=== PATIENT | female | born 1945 | race Caucasian/White ===

== ENCOUNTER 2017-06-29 20:57 | Emergency (ER) | payer MEDICARE, OTHER ==
[~2017-06-29] VITALS: Ht 165.1 cm; Wt 68.0 kg
[~2017-06-29 20:57] MED LIST: ALBUAER3 IN; FERR27TA2 PO; LEVO750T64 PO; PANT1INJ3 PO; TERB250T66 PO
[2017-06-29 23:55] VITALS: BP 152/83
[2017-06-30] MEDS ORDERED: HYDROcodone-ACET 5/325MG TAB PO ONE (00:15)
[2017-06-30] MEDS ORDERED: KETOROLAC TROMETH 60MG/2ML VIAL IM ONE (00:15)
== END 2017-06-30 02:12 | disposition home or self-care (01) ==
LOC: ER 20:57
DX: S59.001A Unspecified physeal fracture of lower end of ulna, right arm, initial encounter for closed fracture (principal); V89.2XXA Person injured in unspecified motor-vehicle accident, traffic, initial encounter; F17.210 Nicotine dependence, cigarettes, uncomplicated; Y93.89 Activity, other specified; Y92.89 Other specified places as the place of occurrence of the external cause; Y99.8 Other external cause status
CPT/HCPCS: 29125; 73110; 96372; 99284; J1885

== ENCOUNTER 2022-01-27 23:07 | Inpatient (IN) | payer MEDICARE, MEDICAID ==
[~2022-01-27] VITALS: Ht 167.6 cm; Wt 72.3 kg
[2022-01-27 23:40] LABS: Basophils # (auto) 0.1 10 ^3/uL (0-0.2); Basophils % (auto) 0.4 % (0.0-2.0); Eosinophils # (auto) 0.1 10 ^3/uL (0-0.8); Eosinophils % (auto) 0.9 % (0.0-7.0); Hematocrit 37.4 % (36.0-46.0); Hemoglobin 12.2 g/dL (12.2-16.2); Lymphocytes # (auto) 0.4 10 ^3/uL (0.4-5.4); Lymphocytes % (auto) 3.5 % (10.0-50.0); Mean Corpuscular Hemoglobin 27.6 pg (28.0-32.0); Mean Corpuscular Hgb Conc. 32.7 g/dL (32.0-36.0); Mean Corpuscular Volume 84.6 fL (80.0-100.0); Monocytes # (auto) 0.6 10 ^3/uL (0-1.3); Monocytes % (auto) 5.1 % (0.0-12.0); Neutrophils # (auto) 10.3 10 ^3/uL (1.6-8.6); Neutrophils % (auto) 90.1 % (37.0-80.0); Nucleated Red Blood Cells % 0.1 %; Red Blood Cells 4.42 10^6/uL (4.0-5.20); Red Cell Distribution Width 13.9 % (11.8-14.3); White Blood Cell 11.4 10^3/uL (4.4-10.8)
[2022-01-28] LABS: Albumin 3.1 g/dL (3.4-5.0); BUN/Creatinine Ratio 26.2; Calcium 8.6 mg/dL (8.5-10.1); Potassium 4.3 mmol/L (3.5-5.1)
[2022-01-28 00:05] LABS: Bilirubin, Total 0.3 mg/dL (0.2-1.0)
[2022-01-28] MEDS ORDERED: cefTRIAXone 1GM/50ML D5W 50 ML IV ONE (08:45)
[2022-01-28] MEDS ORDERED: MORPHINE SULFATE 4 MG/ML SYR/VIAL IV ONE (08:45)
[2022-01-28] MEDS ORDERED: SODIUM CHLORIDE 0.9% 1,000 ML IV ONE (08:45)
[2022-01-28] MEDS ORDERED: FUROSEMIDE 20 MG/2 ML VIAL IV ONE (08:45)
[2022-01-28] MEDS ORDERED: ONDANSETRON HCL 4 MG/2 ML VIAL IV ONE (08:45)
[2022-01-28] MEDS ORDERED: DOCUSATE SOD 100 MG CAP PO PRN (09:15)
[2022-01-28] MEDS ORDERED: MORPHINE SULFATE 4 MG/ML SYR/VIAL IV PRN (09:15)
[2022-01-28] MEDS ORDERED: ACETAMINOPHEN 325 MG TAB PO PRN (09:15)
[2022-01-28] MEDS ORDERED: TEMAZEPAM 15 MG CAP PO PRN (09:15)
[2022-01-28] MEDS ORDERED: ONDANSETRON HCL 4 MG/2 ML VIAL IV PRN (09:15)
[2022-01-28] MEDS ORDERED: HYDROcodone-ACET 5/325MG TAB PO PRN (09:15)
[2022-01-28] MEDS ORDERED: DOCU100C10 PO (09:36)
[2022-01-28] MEDS ORDERED: ALBUTEROL SULF 2.5 MG/0.5ML(0.5%) NEB SOLN NEB PRN (09:45)
[2022-01-28] MEDS ORDERED: IPRATROPIUM BROM 0.5 MG/2.5ML INH SOL NEB PRN (09:45)
[2022-01-28 09:49] LABS: Urine Bacteria NONE SEEN /hpf (None Seen); Urine Blood Negative /uL (Negative); Urine WBC <1 /hpf (0 - 5)
[2022-01-28] MEDS: PATIENTS OWN MEDICATION (Ferrous Gluconate (Iron) 65 MG) PO SCH (10:00)
[2022-01-28] MEDS: PANTOPRAZOLE 40 MG/10 ML VIAL INJ IV SCH (10:20)
[2022-01-28] MEDS: ENOXAPARIN SOD 40 MG/0.4 ML SYRINGE SC SCH (10:20)
[2022-01-28] MEDS: NICOTINE 14 MG/24HR TOPICAL PATCH TD SCH (10:21)
[2022-01-28 10:22] VITALS: BP 133/85
[2022-01-28 11:55] LABS: Cholesterol 127 mg/dL (< 200); HDL Cholesterol 58 mg/dL (40-59); LDL Cholesterol 63 mg/dL (< 100); Triglycerides 64 mg/dL (< 150)
[2022-01-28 13:00] VITALS: BP 118/64
[2022-01-28] MEDS: SODIUM CHLOR 0.9% PF (SALINE LOCK) 10ML VIAL/SYR IV SCH ×2 (14:00→21:47)
[2022-01-28] MEDS: methylPREDNISolone SOD SUCC 40 MG/ML VL IV SCH ×2 (14:00→21:48)
[2022-01-28] MEDS: CLINDAMYCIN 600MG IV 50 ML IV SCH ×2 (14:00→21:47)
[2022-01-28 15:35] VITALS: BP 118/64
[2022-01-28 17:00] VITALS: BP 110/49
[2022-01-28 17:18] LABS: Amphetamine Screen, Urine POSITIVE (NEGATIVE); Barbiturate Scree,Urine NEGATIVE (NEGATIVE); Benzodiazephine Screen, Urine NEGATIVE (NEGATIVE); Cannabinoid Screen, Urine NEGATIVE (NEGATIVE); Cocaine Screen, Urine NEGATIVE (NEGATIVE); Opiate Scree,Urine NEGATIVE (NEGATIVE); Phencyclidine Screen, Urine NEGATIVE (NEGATIVE)
[2022-01-28] MEDS: FUROSEMIDE 40 MG/4 ML VIAL IV SCH (18:00)
[2022-01-28] MEDS ORDERED: FUROSEMIDE 20 MG/2 ML VIAL IV SCH (18:00)
[2022-01-28] MEDS: CARVEDILOL 3.125 MG TAB PO SCH (21:49)
[2022-01-28] MEDS: ATORVASTATIN 20 MG TAB PO SCH (21:49)
[2022-01-28] MEDS: ACETAMINOPHEN 325 MG TAB PO PRN (21:50)
[2022-01-28 22:09] VITALS: BP 130/68
[2022-01-29] VITALS (7 sets, daily range): BP systolic 112–128; BP diastolic 58–74
[2022-01-29 05:52] LABS: Basophils # (auto) 0 10 ^3/uL (0-0.2); Basophils % (auto) 0.3 % (0.0-2.0); Eosinophils # (auto) 0 10 ^3/uL (0-0.8); Hematocrit 34.5 % (36.0-46.0); Hemoglobin 11.3 g/dL (12.2-16.2); Lymphocytes # (auto) 0.4 10 ^3/uL (0.4-5.4); Lymphocytes % (auto) 4.5 % (10.0-50.0); Mean Corpuscular Hemoglobin 27.7 pg (28.0-32.0); Mean Corpuscular Hgb Conc. 32.7 g/dL (32.0-36.0); Mean Corpuscular Volume 84.8 fL (80.0-100.0); Monocytes # (auto) 0.2 10 ^3/uL (0-1.3); Monocytes % (auto) 2.5 % (0.0-12.0); Neutrophils # (auto) 8.1 10 ^3/uL (1.6-8.6); Neutrophils % (auto) 92.7 % (37.0-80.0); Red Blood Cells 4.07 10^6/uL (4.0-5.20); Red Cell Distribution Width 14.4 % (11.8-14.3); White Blood Cell 8.7 10^3/uL (4.4-10.8)
[2022-01-29] MEDS: CLINDAMYCIN 600MG IV 50 ML IV SCH ×3 (06:00→21:58)
[2022-01-29] MEDS: FUROSEMIDE 40 MG/4 ML VIAL IV SCH ×2 (06:01→18:00)
[2022-01-29] MEDS: methylPREDNISolone SOD SUCC 40 MG/ML VL IV SCH ×3 (06:01→21:59)
[2022-01-29] MEDS: SODIUM CHLOR 0.9% PF (SALINE LOCK) 10ML VIAL/SYR IV SCH ×3 (06:01→21:58)
[2022-01-29 06:12] LABS: Potassium 4.4 mmol/L (3.5-5.1)
[2022-01-29 06:18] LABS: BUN/Creatinine Ratio 34.3
[2022-01-29 06:19] LABS: Albumin 2.5 g/dL (3.4-5.0); Calcium 8.9 mg/dL (8.5-10.1)
[2022-01-29 06:21] LABS: Bilirubin, Total 0.2 mg/dL (0.2-1.0); Total Protein 6.1 g/dL (6.4-8.2)
[2022-01-29] MEDS: PANTOPRAZOLE 40 MG/10 ML VIAL INJ IV SCH (10:00)
[2022-01-29] MEDS: ENOXAPARIN SOD 40 MG/0.4 ML SYRINGE SC SCH (10:00)
[2022-01-29] MEDS: LISINOPRIL 10 MG TAB PO SCH (10:00)
[2022-01-29] MEDS: NICOTINE 14 MG/24HR TOPICAL PATCH TD SCH (10:00)
[2022-01-29] MEDS: CARVEDILOL 3.125 MG TAB PO SCH ×2 (10:00→21:59)
[2022-01-29] MEDS: PATIENTS OWN MEDICATION (Ferrous Gluconate (Iron) 65 MG) PO SCH (10:00)
[2022-01-29] MEDS ORDERED: LISINOPRIL 5 MG TAB PO ONE (15:00)
[2022-01-29] MEDS ORDERED: IOHEXOL 350 MG/ML 100ML IJ ONE (15:26)
[2022-01-29] MEDS: ATORVASTATIN 20 MG TAB PO SCH (21:59)
[2022-01-30 04:43] VITALS: BP 145/66
[2022-01-30 05:00] LABS: Calcium 8.9 mg/dL (8.5-10.1); Potassium 4.2 mmol/L (3.5-5.1)
[2022-01-30] MEDS: SODIUM CHLOR 0.9% PF (SALINE LOCK) 10ML VIAL/SYR IV SCH ×3 (05:58→21:46)
[2022-01-30] MEDS: FUROSEMIDE 40 MG/4 ML VIAL IV SCH ×2 (05:58→17:20)
[2022-01-30] MEDS: methylPREDNISolone SOD SUCC 40 MG/ML VL IV SCH ×3 (05:59→22:07)
[2022-01-30] MEDS: CLINDAMYCIN 600MG IV 50 ML IV SCH ×3 (06:00→22:07)
[2022-01-30 08:00] VITALS: BP 127/60
[2022-01-30 09:00] VITALS: BP 127/60
[2022-01-30] MEDS: PATIENTS OWN MEDICATION (Ferrous Gluconate (Iron) 65 MG) PO SCH (10:00)
[2022-01-30] MEDS: CARVEDILOL 3.125 MG TAB PO SCH ×2 (10:22→22:08)
[2022-01-30] MEDS: LISINOPRIL 10 MG TAB PO SCH (10:22)
[2022-01-30] MEDS: ENOXAPARIN SOD 40 MG/0.4 ML SYRINGE SC SCH (10:23)
[2022-01-30] MEDS: PANTOPRAZOLE 40 MG/10 ML VIAL INJ IV SCH (10:23)
[2022-01-30] MEDS: NICOTINE 14 MG/24HR TOPICAL PATCH TD SCH (10:25)
[2022-01-30 13:00] VITALS: BP 154/75
[2022-01-30] MEDS ORDERED: methIMAzole 5 MG TAB PO ONE (15:45)
[2022-01-30] MEDS ORDERED: ERGOCALCIFEROL 50,000 UNIT(1.25MG) CAP PO SCH (15:45)
[2022-01-30 17:00] VITALS: BP 150/79
[2022-01-30] MEDS: ACETAMINOPHEN 325 MG TAB PO PRN (17:23)
[2022-01-30 22:00] VITALS: BP 152/77
[2022-01-30] MEDS: ATORVASTATIN 20 MG TAB PO SCH (22:09)
[2022-01-31] MEDS ORDERED: THROAT LOZENGES(CEPASTAT) MT PRN (00:45)
[2022-01-31 05:00] VITALS: BP 146/78
[2022-01-31] MEDS: SODIUM CHLOR 0.9% PF (SALINE LOCK) 10ML VIAL/SYR IV SCH ×2 (05:37→14:03)
[2022-01-31] MEDS: CLINDAMYCIN 600MG IV 50 ML IV SCH ×2 (05:37→14:03)
[2022-01-31] MEDS: methylPREDNISolone SOD SUCC 40 MG/ML VL IV SCH ×2 (05:37→14:03)
[2022-01-31] MEDS: FUROSEMIDE 40 MG/4 ML VIAL IV SCH (05:38)
[2022-01-31 09:00] VITALS: BP 105/39
[2022-01-31] MEDS: PATIENTS OWN MEDICATION (Ferrous Gluconate (Iron) 65 MG) PO SCH (10:00)
[2022-01-31] MEDS ORDERED: methIMAzole 5 MG TAB PO SCH (10:00)
[2022-01-31] MEDS: PANTOPRAZOLE 40 MG/10 ML VIAL INJ IV SCH (10:19)
[2022-01-31] MEDS: LISINOPRIL 10 MG TAB PO SCH (10:20)
[2022-01-31] MEDS: CARVEDILOL 3.125 MG TAB PO SCH (10:20)
[2022-01-31] MEDS: NICOTINE 14 MG/24HR TOPICAL PATCH TD SCH (10:21)
[2022-01-31] MEDS: ENOXAPARIN SOD 40 MG/0.4 ML SYRINGE SC SCH (10:21)
[2022-01-31] MEDS ORDERED: CAR3125T PO (12:44)
[2022-01-31] MEDS ORDERED: FURO1TAB33 PO (12:44)
[2022-01-31] MEDS ORDERED: ALB5IS NEB (12:44)
[2022-01-31] MEDS ORDERED: ERGO1CAP23 PO (12:44)
[2022-01-31] MEDS ORDERED: LISI-716 PO (12:44)
[2022-01-31] MEDS ORDERED: METH5T PO (12:44)
[2022-01-31] MEDS ORDERED: ATOR20TA50 PO (12:44)
[2022-01-31 13:43] VITALS: BP 120/58
[2022-01-31 14:00] VITALS: BP 120/58
== END 2022-01-31 16:00 | disposition home or self-care (01) | DRG 194 ==
LOC: ER 23:18 → TELE 01-28 09:05 → TELE-WESTW 01-28 12:05
PROVIDERS: ADMIT Registered Nurse; ATTEND Internal Medicine
DX: I11.0 Hypertensive heart disease with heart failure (principal); J96.20 Acute and chronic respiratory failure, unspecified whether with hypoxia or hypercapnia; I27.20 Pulmonary hypertension, unspecified; E44.1 Mild protein-calorie malnutrition; J44.0 Chronic obstructive pulmonary disease with (acute) lower respiratory infection; J18.9 Pneumonia, unspecified organism; E88.09 Other disorders of plasma-protein metabolism, not elsewhere classified; I50.21 Acute systolic (congestive) heart failure; I42.9 Cardiomyopathy, unspecified; J44.1 Chronic obstructive pulmonary disease with (acute) exacerbation; L03.115 Cellulitis of right lower limb; L03.116 Cellulitis of left lower limb; N39.0 Urinary tract infection, site not specified; K21.9 Gastro-esophageal reflux disease without esophagitis; D64.9 Anemia, unspecified; F15.10 Other stimulant abuse, uncomplicated; Z68.25 Body mass index [BMI] 25.0-25.9, adult; E05.90 Thyrotoxicosis, unspecified without thyrotoxic crisis or storm; E55.9 Vitamin D deficiency, unspecified; F17.210 Nicotine dependence, cigarettes, uncomplicated; M19.90 Unspecified osteoarthritis, unspecified site; Z20.822 Contact with and (suspected) exposure to COVID-19; Z96.649 Presence of unspecified artificial hip joint; Z80.52 Family history of malignant neoplasm of bladder; Z71.6 Tobacco abuse counseling; Z71.51 Drug abuse counseling and surveillance of drug abuser
CPT/HCPCS: 36415; 71045; 71275; 80048; 80053; 80061; 80307; 81001; 82306; 83036; 83615; 83735; 83880; 84439; 84443; 84484; 85025; 85379; 87040; 93306; 93970; 96361; 96365; 96375; C9113; G0378; J0696; J2405; J3490

== ENCOUNTER 2022-03-29 17:22 | Emergency (ER) | payer MEDICARE, MEDICAID ==
[~2022-03-29] VITALS: Ht 165.1 cm; Wt 68.0 kg
[~2022-03-29 17:22] MED LIST changes: +ALB5IS NEB; +ATOR20TA50 PO; +CAR3125T PO; +DOCU100C10 PO; +ERGO1CAP23 PO; +FURO1TAB33 PO; +LISI-716 PO; +METH5T PO
[2022-03-29 17:24] VITALS: BP 123/43
[2022-03-29 18:43] LABS: Hemoglobin 8.4 g/dL (12.2-16.2); White Blood Cell 10.3 10^3/uL (4.4-10.8)
[2022-03-29 18:45] LABS: Basophils # (auto) 0.4 10 ^3/uL (0-0.2); Basophils % (auto) 3.8 % (0.0-2.0); Eosinophils # (auto) 0.2 10 ^3/uL (0-0.8); Eosinophils % (auto) 1.6 % (0.0-7.0); Hematocrit 25.4 % (36.0-46.0); Lymphocytes # (auto) 0.7 10 ^3/uL (0.4-5.4); Lymphocytes % (auto) 7.2 % (10.0-50.0); Mean Corpuscular Hemoglobin 26.7 pg (28.0-32.0); Mean Corpuscular Hgb Conc. 33.1 g/dL (32.0-36.0); Mean Corpuscular Volume 80.8 fL (80.0-100.0); Monocytes # (auto) 0.9 10 ^3/uL (0-1.3); Monocytes % (auto) 8.7 % (0.0-12.0); Neutrophils # (auto) 8.1 10 ^3/uL (1.6-8.6); Neutrophils % (auto) 78.7 % (37.0-80.0); Red Blood Cells 3.14 10^6/uL (4.0-5.20); Red Cell Distribution Width 14.9 % (11.8-14.3)
[2022-03-29 19:04] LABS: Calcium 8.7 mg/dL (8.5-10.1); Magnesium 2.4 mg/dL (1.6-2.6); Potassium 3.5 mmol/L (3.5-5.1)
[2022-03-29 19:07] LABS: BUN/Creatinine Ratio 21.4; Bilirubin, Total 0.2 mg/dL (0.2-1.0)
[2022-03-29] MEDS ORDERED: NITROGLYCERIN 0.4 MG SL TAB SL ONE (19:15)
== END 2022-03-29 20:15 | disposition left against medical advice (07) ==
LOC: ER 17:22
DX: M25.522 Pain in left elbow (principal); R94.31 Abnormal electrocardiogram [ECG] [EKG]; I11.0 Hypertensive heart disease with heart failure; I50.9 Heart failure, unspecified; J44.9 Chronic obstructive pulmonary disease, unspecified; F17.210 Nicotine dependence, cigarettes, uncomplicated; Z53.29 Procedure and treatment not carried out because of patient's decision for other reasons
CPT/HCPCS: 36415; 70450; 71045; 80053; 83735; 83880; 84484; 85025; 93005

== ENCOUNTER → 2023-01-02 | Outpatient (CLI) | payer MEDICARE, MEDICAID | END | disposition home or self-care (01) | LOC: XYW 10:32 | PROVIDERS: ATTEND Internal Medicine | DX: I08.1 Rheumatic disorders of both mitral and tricuspid valves (principal); I50.42 Chronic combined systolic (congestive) and diastolic (congestive) heart failure | CPT/HCPCS: 93306 ==

== ENCOUNTER → 2023-09-13 | Outpatient (CLI) | payer MEDICARE, MEDICAID ==
[~2023-09-13] MED LIST changes: +DOCU-265 PO; -DOCU100C10 PO; +FERR1TAB31 PO; -FERR27TA2 PO; +LEVO750T40 PO; -LEVO750T64 PO; -LISI-716 PO; +LISI10TA34 PO; -METH5T PO; +METH5TAB98 PO; -TERB250T66 PO; +TERB250T74 PO
== END | disposition home or self-care (01) ==
LOC: XYW 13:44
PROVIDERS: ATTEND Internal Medicine
DX: I34.0 Nonrheumatic mitral (valve) insufficiency (principal); R06.02 Shortness of breath
CPT/HCPCS: 93306